=== PATIENT | female | born 1990 | race Caucasian/White ===

== ENCOUNTER 2017-09-08 01:44 | Emergency (ER) | payer MEDICAID, OTHER ==
[2017-09-08] MEDS: SOD CHLORIDE 0.9% 1,000 ML IV (03:13)
[2017-09-08] MEDS: METOCLOPRAMIDE 10 MG INJ IV (03:20)
[2017-09-08] MEDS: DIPHENHYDRAMINE 50 MG INJ IV (03:20)
[2017-09-08 03:31] LABS: ADD MAN DIFF? NO
[2017-09-08 03:42] LABS: WHITE BLOOD COUNT 9.1 10^3/ul (4.8-10.8)
[2017-09-08 03:42] LABS: BASOPHILS % 0.3 % (0.0-2.0); EOSINOPHILS # 0.1 10^3/ul (0.0-0.5); EOSINOPHILS % 0.9 % (0.0-7.0); HEMATOCRIT 38.1 % (37.0-47.0); HEMOGLOBIN 13.6 g/dl (12.0-16.0); LYMPHOCYTES # 2.5 10^3/ul (0.8-2.9); MEAN CORPUSCULAR HEMOGLOBIN 30.3 pg (29.0-33.0); MEAN CORPUSCULAR HGB CONC 35.7 g/dl (32.0-37.0); MEAN CORPUSCULAR VOLUME 84.9 fl (82.0-101.0); MEAN PLATELET VOLUME 9.4 fl (7.4-10.4); MONOCYTE # 0.6 10^3/ul (0.3-0.9); MONOCYTES % 6.5 % (0.0-11.0); NEUTROPHILS % 65.1 % (39.0-77.0); PLATELET COUNT 257 10^3/UL (140-415); RED BLOOD COUNT 4.49 10^6/ul (4.20-5.40); RED CELL DISTRIBUTION WIDTH 11.9 % (11.5-14.5)
[2017-09-08 03:46] LABS: ADD UMIC YES; UR ASCORBIC ACID NEGATIVE (NEGATIVE); UR BACTERIA FEW /HPF (NONE SEEN); UR BILIRUBIN (Dip) NEGATIVE (NEGATIVE); UR BLOOD (Dip) 1+ mg/dL (NEGATIVE); UR CLARITY CLOUDY (CLEAR); UR COLOR AMBER (YELLOW); UR GLUCOSE (Dip) NEGATIVE (NEGATIVE); UR KETONES (Dip) 2+ mg/dL (NEGATIVE); UR LEUKOCYTE ESTERASE (Dip) 2+ Leu/ul (NEGATIVE); UR MUCUS MANY /HPF (NONE SEEN); UR NITRITE (Dip) NEGATIVE (NEGATIVE); UR NONSQUAMOUS EPITHELIAL CELL 2 /HPF (NONE SEEN); UR RBC 6 /HPF (0-5); UR SPECIFIC GRAVITY (Dip) 1.031 (1.003-1.030); UR SQUAMOUS EPITHELIAL CELL MANY /HPF (FEW); UR TOTAL PROTEIN (Dip) 1+ mg/dl (NEGATIVE); UR UROBILINOGEN (Dip) NEGATIVE (NEGATIVE); UR WBC 13 /HPF (0-5)
[2017-09-08 06:06] LABS: ALBUMIN/GLOBULIN RATIO 1.23
[2017-09-08 06:07] LABS: ALANINE AMINOTRANSFERASE 17 IU/L (13-69); ALBUMIN 4.8 g/dl (3.3-4.9); ALKALINE PHOSPHATASE 41 IU/L (42-121); ANION GAP 18 (8-16); ASPARTATE AMINO TRANSFERASE 23 IU/L (15-46); BILIRUBIN,INDIRECT 0.3 mg/dl (0-1.1); BILIRUBIN,TOTAL 0.3 mg/dl (0.2-1.3); BLOOD UREA NITROGEN 16 mg/dl (7-20); CALCIUM 10.1 mg/dl (8.4-10.2); CARBON DIOXIDE 24 mmol/L (21-31); CHLORIDE 103 mmol/L (97-110); GLUCOSE 85 mg/dl (70-220); LIPASE 80 U/L (23-300); POTASSIUM 3.8 mmol/L (3.5-5.1); SODIUM 141 mmol/L (135-144); TOTAL PROTEIN 8.7 g/dl (6.1-8.1)
== END 2017-09-08 06:14 | disposition home or self-care (01) ==
LOC: FTE 01:44
DX: O23.41 Unspecified infection of urinary tract in pregnancy, first trimester (principal); R10.2 Pelvic and perineal pain; Z3A.01 Less than 8 weeks gestation of pregnancy
CPT/HCPCS: 36415; 76801; 80053; 81001; 81025; 83690; 85025; 96361; 96374; 96375; 99285-25

== ENCOUNTER 2017-09-09 11:09 | Emergency (ER) | payer MEDICAID ==
[2017-09-09] MEDS: CEFTRIAXONE 1 GM/50 ML (PMX) 50 ML IVPB (11:44)
[2017-09-09] MEDS: SOD CHLORIDE 0.9% 1,000 ML IV (11:45)
[2017-09-09 11:58] LABS: ADD MAN DIFF? NO
[2017-09-09 12:12] LABS: BASOPHILS % 0.3 % (0.0-2.0); EOSINOPHILS % 0.1 % (0.0-7.0); HEMATOCRIT 37.5 % (37.0-47.0); HEMOGLOBIN 13.1 g/dl (12.0-16.0); LYMPHOCYTES # 1.5 10^3/ul (0.8-2.9); LYMPHOCYTES % 12.2 % (15.0-51.0); MEAN CORPUSCULAR HEMOGLOBIN 29.7 pg (29.0-33.0); MEAN CORPUSCULAR HGB CONC 34.9 g/dl (32.0-37.0); MEAN PLATELET VOLUME 9.4 fl (7.4-10.4); MONOCYTE # 0.4 10^3/ul (0.3-0.9); MONOCYTES % 3.2 % (0.0-11.0); NEUTROPHIL # 10.4 10^3/ul (1.6-7.5); NEUTROPHILS % 83.9 % (39.0-77.0); PLATELET COUNT 258 10^3/UL (140-415); RED BLOOD COUNT 4.41 10^6/ul (4.20-5.40)
[2017-09-09 12:12] LABS: WHITE BLOOD COUNT 12.4 10^3/ul (4.8-10.8)
[2017-09-09 12:18] LABS: ALANINE AMINOTRANSFERASE 13 IU/L (13-69); ALBUMIN/GLOBULIN RATIO 1.38; ALKALINE PHOSPHATASE 45 IU/L (42-121); ANION GAP 22 (8-16); ASPARTATE AMINO TRANSFERASE 21 IU/L (15-46); BILIRUBIN,INDIRECT 0.4 mg/dl (0-1.1); BILIRUBIN,TOTAL 0.4 mg/dl (0.2-1.3); BLOOD UREA NITROGEN 19 mg/dl (7-20); CALCIUM 9.2 mg/dl (8.4-10.2); CARBON DIOXIDE 17 mmol/L (21-31); CHLORIDE 103 mmol/L (97-110); CREATININE 0.72 mg/dl (0.44-1.00); GLUCOSE 67 mg/dl (70-220); LIPASE 98 U/L (23-300); POTASSIUM 3.9 mmol/L (3.5-5.1); SODIUM 138 mmol/L (135-144); TOTAL PROTEIN 8.6 g/dl (6.1-8.1)
[2017-09-09 12:24] LABS: UR BACTERIA FEW /HPF (NONE SEEN); UR MUCUS FEW /HPF (NONE SEEN); UR NONSQUAMOUS EPITHELIAL CELL 1 /HPF (NONE SEEN); UR RBC 21 /HPF (0-5); UR SQUAMOUS EPITHELIAL CELL MODERATE /HPF (FEW); UR WBC 5 /HPF (0-5)
[2017-09-09 12:42] LABS: ADD UMIC YES; UR ASCORBIC ACID NEGATIVE (NEGATIVE); UR BILIRUBIN (Dip) NEGATIVE (NEGATIVE); UR BLOOD (Dip) 3+ mg/dL (NEGATIVE); UR CLARITY SLIGHTLY CLOUDY (CLEAR); UR COLOR YELLOW (YELLOW); UR GLUCOSE (Dip) NEGATIVE (NEGATIVE); UR KETONES (Dip) 2+ mg/dL (NEGATIVE); UR LEUKOCYTE ESTERASE (Dip) NEGATIVE Leu/ul (NEGATIVE); UR NITRITE (Dip) NEGATIVE (NEGATIVE); UR SPECIFIC GRAVITY (Dip) 1.021 (1.003-1.030); UR TOTAL PROTEIN (Dip) NEGATIVE (NEGATIVE); UR UROBILINOGEN (Dip) NEGATIVE (NEGATIVE)
[2017-09-09] MEDS: DEXTROSE 5%-0.45% NACL 500 ML BAG IV (12:47)
[2017-09-09] MEDS: ONDANSETRON 4 MG INJ IV (12:52)
== END 2017-09-09 14:09 | disposition home or self-care (01) ==
LOC: FTE 11:09
DX: O20.9 Hemorrhage in early pregnancy, unspecified (principal); O21.9 Vomiting of pregnancy, unspecified; O23.41 Unspecified infection of urinary tract in pregnancy, first trimester; R10.2 Pelvic and perineal pain; Z3A.01 Less than 8 weeks gestation of pregnancy
CPT/HCPCS: 36415; 76801; 80053; 81001; 82962; 83690; 84702; 85025; 86900; 86901; 96374; 96375; 99285-25

== ENCOUNTER 2017-09-15 10:08 | Emergency (ER) | payer MEDICAID ==
[2017-09-15] MEDS: SOD CHLORIDE 0.9% 1,000 ML IV ×2 (11:01→12:22)
[2017-09-15] MEDS: ONDANSETRON 4 MG INJ IV (11:02)
== END 2017-09-15 14:21 | disposition home or self-care (01) ==
LOC: FTE 10:08
DX: O21.0 Mild hyperemesis gravidarum (principal); Z3A.01 Less than 8 weeks gestation of pregnancy
CPT/HCPCS: 96374; 99284-25

== ENCOUNTER 2017-09-20 13:59 | Emergency (ER) | payer MEDICAID ==
[2017-09-20] MEDS: SOD CHLORIDE 0.9% 1,000 ML IV (15:08)
[2017-09-20] MEDS: DIPHENHYDRAMINE 50 MG INJ IV (15:08)
[2017-09-20] MEDS: FAMOTIDINE 20 MG INJ IV (15:08)
[2017-09-20] MEDS: METOCLOPRAMIDE 10 MG INJ IV (15:08)
[2017-09-20 15:30] LABS: ADD MAN DIFF? NO
[2017-09-20 15:33] LABS: WHITE BLOOD COUNT 8.7 10^3/ul (4.8-10.8)
[2017-09-20 15:33] LABS: BASOPHILS % 0.2 % (0.0-2.0); EOSINOPHILS # 0.1 10^3/ul (0.0-0.5); EOSINOPHILS % 0.7 % (0.0-7.0); HEMATOCRIT 38.4 % (37.0-47.0); HEMOGLOBIN 13.5 g/dl (12.0-16.0); LYMPHOCYTES # 2.4 10^3/ul (0.8-2.9); LYMPHOCYTES % 28.1 % (15.0-51.0); MEAN CORPUSCULAR HEMOGLOBIN 29.6 pg (29.0-33.0); MEAN CORPUSCULAR HGB CONC 35.2 g/dl (32.0-37.0); MEAN CORPUSCULAR VOLUME 84.2 fl (82.0-101.0); MEAN PLATELET VOLUME 9.3 fl (7.4-10.4); MONOCYTE # 0.5 10^3/ul (0.3-0.9); MONOCYTES % 6.1 % (0.0-11.0); NEUTROPHIL # 5.6 10^3/ul (1.6-7.5); NEUTROPHILS % 64.8 % (39.0-77.0); PLATELET COUNT 239 10^3/UL (140-415); RED BLOOD COUNT 4.56 10^6/ul (4.20-5.40); RED CELL DISTRIBUTION WIDTH 11.9 % (11.5-14.5)
[2017-09-20 15:48] LABS: ADD UMIC YES; UR ASCORBIC ACID NEGATIVE (NEGATIVE); UR BACTERIA FEW /HPF (NONE SEEN); UR BILIRUBIN (Dip) NEGATIVE (NEGATIVE); UR BLOOD (Dip) 3+ mg/dL (NEGATIVE); UR CLARITY SLIGHTLY CLOUDY (CLEAR); UR COLOR YELLOW (YELLOW); UR GLUCOSE (Dip) NEGATIVE (NEGATIVE); UR KETONES (Dip) 1+ mg/dL (NEGATIVE); UR LEUKOCYTE ESTERASE (Dip) TRACE Leu/ul (NEGATIVE); UR MUCUS MANY /HPF (NONE SEEN); UR NITRITE (Dip) NEGATIVE (NEGATIVE); UR RBC 5 /HPF (0-5); UR SPECIFIC GRAVITY (Dip) 1.021 (1.003-1.030); UR SQUAMOUS EPITHELIAL CELL MODERATE /HPF (FEW); UR TOTAL PROTEIN (Dip) 1+ mg/dl (NEGATIVE); UR UROBILINOGEN (Dip) NEGATIVE (NEGATIVE); UR WBC 16 /HPF (0-5)
[2017-09-20 15:59] LABS: ALANINE AMINOTRANSFERASE 13 IU/L (13-69); ALBUMIN 4.8 g/dl (3.3-4.9); ALBUMIN/GLOBULIN RATIO 1.23; ALKALINE PHOSPHATASE 43 IU/L (42-121); ANION GAP 17 (8-16); ASPARTATE AMINO TRANSFERASE 23 IU/L (15-46); BILIRUBIN,INDIRECT 0.2 mg/dl (0-1.1); BILIRUBIN,TOTAL 0.2 mg/dl (0.2-1.3); BLOOD UREA NITROGEN 8 mg/dl (7-20); CALCIUM 9.5 mg/dl (8.4-10.2); CARBON DIOXIDE 24 mmol/L (21-31); CHLORIDE 100 mmol/L (97-110); CREATININE 0.51 mg/dl (0.44-1.00); GLUCOSE 76 mg/dl (70-220); LIPASE 237 U/L (23-300); POTASSIUM 3.4 mmol/L (3.5-5.1); SODIUM 138 mmol/L (135-144); TOTAL PROTEIN 8.7 g/dl (6.1-8.1)
== END 2017-09-20 17:20 | disposition home or self-care (01) ==
LOC: FTE 13:59
DX: O20.9 Hemorrhage in early pregnancy, unspecified (principal); Z3A.01 Less than 8 weeks gestation of pregnancy
CPT/HCPCS: 36415; 76801; 80053; 81001; 83690; 84702; 85025; 86900; 86901; 96374; 96375; 99285-25

== ENCOUNTER 2017-09-26 14:54 | Emergency (ER) | payer MEDICAID ==
[2017-09-26] MEDS: ONDANSETRON 4 MG INJ IV (15:55)
[2017-09-26] MEDS: FAMOTIDINE 20 MG INJ IV (15:55)
[2017-09-26] MEDS: SOD CHLORIDE 0.9% 1,000 ML IV (15:55)
== END 2017-09-26 17:49 | disposition home or self-care (01) ==
LOC: FTE 14:54
DX: O21.0 Mild hyperemesis gravidarum (principal); O26.891 Other specified pregnancy related conditions, first trimester; R10.13 Epigastric pain; R10.2 Pelvic and perineal pain; Z3A.08 8 weeks gestation of pregnancy
CPT/HCPCS: 76801; 84702; 96374; 96375; 99285-25

== ENCOUNTER 2018-04-22 11:18 | Inpatient (IN) | payer OTHER ==
[~2018-04-22 11:18] MED LIST: EPINEPHrine 1 MG INJ
[2018-04-22] MEDS ORDERED: METHYLERGONOVINE 0.2 MG INJ IM (13:30)
[2018-04-22] MEDS ORDERED: CARBOPROST 250 MCG INJ IM (13:30)
[2018-04-22] MEDS ORDERED: OXYTOCIN 30 UNITS/LR 500 ML IV (13:30)
[2018-04-22] MEDS ORDERED: MISOPROSTOL 200 MCG TAB PR (13:30)
[2018-04-22 14:41] LABS: ADD MAN DIFF? NO; BASOPHILS % 0.3 % (0.0-2.0); EOSINOPHILS % 0.4 % (0.0-7.0); HEMATOCRIT 32.8 % (37.0-47.0); HEMOGLOBIN 10.8 g/dl (12.0-16.0); LYMPHOCYTES # 1.9 10^3/ul (0.8-2.9); LYMPHOCYTES % 21.3 % (15.0-51.0); MEAN CORPUSCULAR HEMOGLOBIN 27.1 pg (29.0-33.0); MEAN CORPUSCULAR HGB CONC 32.9 g/dl (32.0-37.0); MEAN CORPUSCULAR VOLUME 82.2 fl (82.0-101.0); MEAN PLATELET VOLUME 9.5 fl (7.4-10.4); MONOCYTE # 0.5 10^3/ul (0.3-0.9); MONOCYTES % 5.8 % (0.0-11.0); NEUTROPHIL # 6.5 10^3/ul (1.6-7.5); NEUTROPHILS % 71.8 % (39.0-77.0); PLATELET COUNT 235 10^3/UL (140-415); RED BLOOD COUNT 3.99 10^6/ul (4.20-5.40); RED CELL DISTRIBUTION WIDTH 13.7 % (11.5-14.5)
[2018-04-22 14:41] LABS: WHITE BLOOD COUNT 9.1 10^3/ul (4.8-10.8)
[2018-04-22 15:00] LABS: INR 0.82; PROTIME 11.4 Sec (11.9-14.9); PT RATIO 0.9
[2018-04-22 15:01] LABS: PARTIAL THROMBOPLASTIN TIME 23.2 Sec (23.0-35.0)
[2018-04-22] MEDS: LACTATED RINGER'S 1,000 ML IV ×3 (15:16→23:05)
[2018-04-22 16:11] LABS: RAPID PLASMA REAGIN NONREACTIVE (NR)
[2018-04-22] MEDS ORDERED: morphine SULFATE/PF (10 MG/10 ML) INJ (21:57)
[2018-04-22] MEDS ORDERED: OXYTOCIN 10 UNIT INJ (21:58)
[2018-04-22] MEDS ORDERED: FENTAnyl 50 MCG/ML VIAL IV ×2 (22:00)
[2018-04-22] MEDS ORDERED: ZOLPIDEM 5 MG TAB PO (22:00)
[2018-04-22] MEDS ORDERED: KETOROLAC 30 MG INJ IV (22:00)
[2018-04-22] MEDS ORDERED: DIPHENHYDRAMINE 50 MG INJ IV ×2 (22:00)
[2018-04-22] MEDS ORDERED: ONDANSETRON 4 MG INJ IV (22:00)
[2018-04-22] MEDS ORDERED: NALOXONE (0.4 MG/ML) INJ IV ×2 (22:00)
[2018-04-22] MEDS ORDERED: HYDROmorphONE 0.5 MG/0.5 ML SYG IV ×2 (22:00)
[2018-04-22] MEDS ORDERED: HYDROmorphONE 1 MG/5 ML IV SYRINGE IV ×3 (22:00)
[2018-04-22] MEDS: METOCLOPRAMIDE 10 MG INJ IV (22:33)
[2018-04-22] MEDS: FAMOTIDINE 20 MG INJ IV (22:35)
[2018-04-22] MEDS: ONDANSETRON 4 MG INJ IV (22:36)
[2018-04-23] MEDS: DEXTROSE 5%-LR 1,000 ML IV ×3 (01:27→20:31)
[2018-04-23] MEDS ORDERED: METHYLERGONOVINE 0.2 MG TAB PO (01:30)
[2018-04-23] MEDS ORDERED: LANOLIN HPA 1 PKT TOP (01:30)
[2018-04-23] MEDS ORDERED: OXYTOCIN 30 UNITS/LR 500 ML IV (01:30)
[2018-04-23] MEDS ORDERED: METHYLERGONOVINE 0.2 MG INJ IM (01:30)
[2018-04-23] MEDS ORDERED: MISOPROSTOL 200 MCG TAB PR (01:30)
[2018-04-23] MEDS ORDERED: CARBOPROST 250 MCG INJ IM (01:30)
[2018-04-23] MEDS: CEFAZOLIN 2 GM/50 ML (PMX) 50 ML IVPB (01:40)
[2018-04-23] MEDS: OXYTOCIN 30 UNITS/LR 500 ML IV ×2 (02:09→06:09)
[2018-04-23] MEDS: ONDANSETRON 4 MG INJ IV (05:35)
[2018-04-23] MEDS: IBUPROFEN 800 MG TAB PO ×3 (06:00→22:11)
[2018-04-23] MEDS: LEVOTHYROXINE 100 MCG TAB PO (06:00)
[2018-04-23] MEDS ORDERED: LEVOTHYROXINE 125 MCG TAB PO (07:00)
[2018-04-23] MEDS: SENNA/DOCUSATE NA (8.6MG/50MG) TAB PO ×2 (09:19→21:20)
[2018-04-23] MEDS: KETOROLAC 30 MG INJ IV (15:46)
[2018-04-24] MEDS: DEXTROSE 5%-LR 1,000 ML IV ×3 (00:13→17:27)
[2018-04-24] MEDS: HYDROCODONE/APAP (5/325) TAB PO ×4 (03:10→21:43)
[2018-04-24] MEDS: LEVOTHYROXINE 100 MCG TAB PO (05:34)
[2018-04-24] MEDS: IBUPROFEN 800 MG TAB PO ×3 (05:35→21:43)
[2018-04-24 07:56] LABS: ADD MAN DIFF? NO
[2018-04-24 07:58] LABS: WHITE BLOOD COUNT 14.4 10^3/ul (4.8-10.8)
[2018-04-24 07:58] LABS: BASOPHILS % 0.2 % (0.0-2.0); EOSINOPHILS % 0.2 % (0.0-7.0); HEMATOCRIT 27.4 % (37.0-47.0); HEMOGLOBIN 8.9 g/dl (12.0-16.0); LYMPHOCYTES # 1.6 10^3/ul (0.8-2.9); LYMPHOCYTES % 10.9 % (15.0-51.0); MEAN CORPUSCULAR HEMOGLOBIN 27.2 pg (29.0-33.0); MEAN CORPUSCULAR HGB CONC 32.5 g/dl (32.0-37.0); MEAN CORPUSCULAR VOLUME 83.8 fl (82.0-101.0); MEAN PLATELET VOLUME 9.6 fl (7.4-10.4); MONOCYTE # 0.6 10^3/ul (0.3-0.9); MONOCYTES % 4.4 % (0.0-11.0); NEUTROPHIL # 12.1 10^3/ul (1.6-7.5); NEUTROPHILS % 83.7 % (39.0-77.0); PLATELET COUNT 197 10^3/UL (140-415); RED BLOOD COUNT 3.27 10^6/ul (4.20-5.40); RED CELL DISTRIBUTION WIDTH 13.8 % (11.5-14.5)
[2018-04-24] MEDS: SENNA/DOCUSATE NA (8.6MG/50MG) TAB PO ×2 (08:56→21:12)
[2018-04-24] MEDS ORDERED: HYDROCODONE/APAP (5/325) TAB PO ×2 (11:00→14:00)
[2018-04-24] MEDS ORDERED: DIPHTH/TET/ACEL PERTUSS (ADULT) 0.5 ML VIAL IM* (11:00)
[2018-04-25] MEDS: DEXTROSE 5%-LR 1,000 ML IV ×3 (01:27→17:27)
[2018-04-25] MEDS: LEVOTHYROXINE 100 MCG TAB PO (06:02)
[2018-04-25] MEDS: IBUPROFEN 800 MG TAB PO ×2 (06:03→14:41)
[2018-04-25] MEDS: HYDROCODONE/APAP (5/325) TAB PO ×2 (06:03→14:00)
[2018-04-25] MEDS: SENNA/DOCUSATE NA (8.6MG/50MG) TAB PO (09:07)
[2018-04-25] MEDS: MAGNESIUM HYDROXIDE 30ML CUP PO (14:44)
[2018-04-26] MEDS ORDERED: MEASLES,MUMPS,RUBELLA VACCINE INJ SC* (09:00)
[2018-04-26] MEDS ORDERED: DIPHTH/TET/ACEL PERTUSS (ADULT) 0.5 ML VIAL IM* (09:00)
== END 2018-04-25 17:50 | disposition home or self-care (01) | DRG 787 ==
LOC: OBT 11:18 → L-D 04-23 00:32 → PP1 04-23 03:10 → OBT 12:57 → L-D 12:45
PROVIDERS: Obstetrics & Gynecology
PROC: 10D00Z1 Extraction of Products of Conception, Low, Open Approach (ICD-10-PCS; principal; 2018-04-22 22:00)
PROC: 3E033VJ Introduction of Other Hormone into Peripheral Vein, Percutaneous Approach (ICD-10-PCS; 2018-04-22 22:00)
DX: O99.284 Endocrine, nutritional and metabolic diseases complicating childbirth (principal); O41.03X0 Oligohydramnios, third trimester, not applicable or unspecified; E03.9 Hypothyroidism, unspecified; O32.1XX0 Maternal care for breech presentation, not applicable or unspecified; Z3A.38 38 weeks gestation of pregnancy; Z37.0 Single live birth
CPT/HCPCS: 76815; 76818; 85025; 85610; 85730; 86592; 86850; 86900; 86901; 99464